=== PATIENT | male | born 1990 | race Caucasian/White ===

== ENCOUNTER 2021-03-07 14:39 | Inpatient (IN) | payer MEDICAID ==
[~2021-03-07] VITALS: Ht 165.1 cm; Wt 56.7 kg
[2021-03-07] MEDS ORDERED: HALOPERIDOL 5 MG TABLET PO PRN (16:30)
[2021-03-07] MEDS ORDERED: ZOLPIDEM TARTRATE 10 MG TABLET PO PRN (16:30)
[2021-03-07] MEDS ORDERED: LORazepam 2 MG TABLET ONE (17:14)
[2021-03-07] MEDS ORDERED: HALOPERIDOL 5 MG TABLET ONE (17:15)
[2021-03-07 17:35] VITALS: BP 116/80
[2021-03-07] MEDS ORDERED: OLAN10TA74 PO (18:57)
[2021-03-07] MEDS ORDERED: PALI1.5T7 PO (18:57)
[2021-03-07] MEDS ORDERED: LOSA50TA37 PO (18:57)
[2021-03-07] MEDS ORDERED: FLUO20CA36 PO (18:57)
[2021-03-07] MEDS ORDERED: DIVA-80 PO (18:57)
[2021-03-07] MEDS: LORazepam 2 MG TABLET PO PRN (19:07)
[2021-03-07 19:56] VITALS: BP 144/87
[2021-03-08 01:20] VITALS: BP 143/100
[2021-03-08 07:16] LABS: BASOPHILS % (AUTO) 0.5 % (0.0-2.0); EOSINOPHILS % (AUTO) 1.3 % (1.0-6.0); HEMATOCRIT 35.4 % (41-53); HEMOGLOBIN 11.3 g/dL (13.5-17.5); LYMPHOCYTES # (AUTO) 1.7 K/uL (1.0-4.8); LYMPHOCYTES % (AUTO) 30.8 % (22.0-44.0); MEAN CORPUSCULAR HEMOGLOBIN 28.1 pg (26.0-34.0); MEAN CORPUSCULAR HGB CONC 31.9 G/dL (31.0-37.0); MEAN CORPUSCULAR VOLUME 88 fL (80-100); MONOCYTES # (AUTO) 0.6 K/uL (0.1-1.0); MONOCYTES % (AUTO) 10.5 % (2.0-9.0); NEUTROPHILS # (AUTO) 3.1 K/uL (1.8-7.7); NEUTROPHILS % (AUTO) 56.9 % (40.0-70.0); PLATELET COUNT (AUTO) 201 K/uL (150-450); RED BLOOD CELL COUNT(AUTO) 4.02 MIL/uL (4.50-5.90); RED CELL DISTRIBUTION WIDTH 13.9 % (11.5-14.5)
[2021-03-08 07:40] LABS: ALBUMIN 3.9 g/dL (3.4-5.0); ANION GAP 3 mmol/L (8-16); CALCIUM, TOTAL 9.5 mg/dL (8.8-10.5); CARBON DIOXIDE 28 mmol/L (22-29); CHLORIDE 101 mmol/L (98-107); CREATININE 1.09 mg/dL (0.60-1.30); GLOMERULAR FILTR. RATE CALC > 60 mL/min (>60); GLUCOSE,RANDOM 112 mg/dL (70-110); POTASSIUM 4.1 mmol/L (3.5-5.1); SODIUM SERUM 132 mmol/L (136-145); UREA NITROGEN, BLOOD 10 mg/dL (7-18)
[2021-03-08 08:11] LABS: ALANINE AMINOTRANSFERASE 55 U/L (12-78); ALKALINE PHOSPHATASE 65 U/L (46-116); ASPARTATE AMINOTRANSFERASE 32 U/L (15-37); BILIRUBIN,TOTAL 0.4 mg/dL (0.1-1.0); CHOLESTEROL 194 mg/dL (131-200); FREE T4 (FREE THYROXINE) 0.78 ng/dL (0.76-1.46); HDL CHOLESTEROL 39 mg/dL (40-60); LDL CHOL (CALC.) 125 mg/dL (0-130); TOTAL PROTEIN, SERUM 7.6 g/dL (6.4-8.2); TRIGLYCERIDES 149 mg/dL (15-150)
[2021-03-08] MEDS: DIVALPROEX SODIUM 500 MG DR TABLET PO SCH ×2 (09:30→16:59)
[2021-03-08] MEDS: OLANZapine 5 MG TABLET PO SCH (09:30)
[2021-03-08 10:39] VITALS: BP 121/77
[2021-03-08 16:25] VITALS: BP 138/94
[2021-03-08] MEDS: OLANZapine 10 MG TABLET PO SCH (16:59)
[2021-03-09 05:02] VITALS: BP 128/72
[2021-03-09] MEDS ORDERED: LORazepam 1 MG TABLET ONE ×2 (07:59)
[2021-03-09] MEDS: DIVALPROEX SODIUM 500 MG DR TABLET PO SCH ×2 (09:00→20:45)
[2021-03-09] MEDS: OLANZapine 5 MG TABLET PO SCH (09:00)
[2021-03-09 10:05] VITALS: BP 130/72
[2021-03-09 16:10] VITALS: BP 136/88
[2021-03-09] MEDS: OLANZapine 10 MG TABLET PO SCH (20:45)
[2021-03-10 06:50] VITALS: BP 121/83
[2021-03-10 08:22] VITALS: BP 150/95
[2021-03-10] MEDS: OLANZapine 5 MG TABLET PO SCH (09:00)
[2021-03-10] MEDS: DIVALPROEX SODIUM 500 MG DR TABLET PO SCH ×2 (09:00→21:00)
[2021-03-10] MEDS ORDERED: IBUPROFEN 400 MG TABLET PO PRN (15:00)
[2021-03-10] MEDS ORDERED: ONDANSETRON HCL 4 MG TABLET PO PRN (15:00)
[2021-03-10] MEDS ORDERED: ALBUTEROL SULFATE HFA 90 MCG/PUFF 8 GM INHALER IH PRN (15:00)
[2021-03-10] MEDS ORDERED: NICOTINE 14 MG/24 HOUR PATCH TD PRN (15:00)
[2021-03-10] MEDS ORDERED: GuaiFENesin/D-METHORPHAN [SUGAR-FREE] 200-20MG/10 ML SYRUP UDCUP PO PRN (15:00)
[2021-03-10] MEDS ORDERED: PETROLATUM,WHITE 28 GM JELLY TP PRN (15:00)
[2021-03-10] MEDS ORDERED: LOPERAMIDE HCL 2 MG CAPSULE PO PRN (15:00)
[2021-03-10] MEDS ORDERED: ACETAMINOPHEN 325 MG TABLET PO PRN (15:00)
[2021-03-10] MEDS ORDERED: CloNIDine HCL 0.1 MG TABLET PO PRN (15:00)
[2021-03-10] MEDS ORDERED: MAGNESIUM HYDROXIDE SUSPENSION 30 ML UDCUP PO PRN (15:00)
[2021-03-10] MEDS ORDERED: MAG HYDROX/AL HYDROX/SIMETH ES 30 ML SUSPENSION UDCUP PO PRN (15:00)
[2021-03-10] MEDS ORDERED: DOCUSATE SODIUM 100 MG CAPSULE PO PRN (15:00)
[2021-03-10 16:15] VITALS: BP 127/80
[2021-03-10] MEDS: OLANZapine 10 MG TABLET PO SCH (21:00)
[2021-03-11 01:41] VITALS: BP 152/91
[2021-03-11 06:42] VITALS: BP 149/99
[2021-03-11 07:33] LABS: ANION GAP 9 mmol/L (8-16); CALCIUM, TOTAL 9.7 mg/dL (8.8-10.5); CARBON DIOXIDE 26 mmol/L (22-29); CHLORIDE 104 mmol/L (98-107); CREATININE 1.02 mg/dL (0.60-1.30); GLOMERULAR FILTR. RATE CALC > 60 mL/min (>60); GLUCOSE,RANDOM 97 mg/dL (70-110); POTASSIUM 3.7 mmol/L (3.5-5.1); SODIUM SERUM 139 mmol/L (136-145); UREA NITROGEN, BLOOD 9 mg/dL (7-18)
[2021-03-11] MEDS: LOSARTAN POTASSIUM 50 MG TABLET PO SCH (08:18)
[2021-03-11] MEDS: DIVALPROEX SODIUM 500 MG DR TABLET PO SCH ×4 (08:18→22:40)
[2021-03-11] MEDS: OLANZapine 5 MG TABLET PO SCH (08:19)
[2021-03-11 08:33] VITALS: BP 132/85
[2021-03-11 16:18] VITALS: BP 150/92
[2021-03-11] MEDS: OLANZapine 10 MG TABLET PO SCH ×3 (16:41→22:40)
[2021-03-11] MEDS ORDERED: HALOPERIDOL LACTATE 5 MG/ML VIAL IM PRN (16:45)
[2021-03-12 03:44] VITALS: BP 150/93
[2021-03-12 07:08] VITALS: BP 141/81
[2021-03-12] MEDS: LORazepam 2 MG TABLET PO PRN ×2 (07:17→20:26)
[2021-03-12 08:43] VITALS: BP 146/79
[2021-03-12] MEDS: OLANZapine 5 MG TABLET PO SCH (09:49)
[2021-03-12] MEDS: DIVALPROEX SODIUM 500 MG DR TABLET PO SCH ×2 (09:49→20:26)
[2021-03-12] MEDS: LOSARTAN POTASSIUM 50 MG TABLET PO SCH (09:49)
[2021-03-12 16:14] VITALS: BP 101/60
[2021-03-12] MEDS: OLANZapine 10 MG TABLET PO SCH (20:26)
[2021-03-13 04:08] VITALS: BP 211/163
[2021-03-13 05:10] VITALS: BP 116/79
[2021-03-13] MEDS: DIVALPROEX SODIUM 500 MG DR TABLET PO SCH (09:08)
[2021-03-13] MEDS: LOSARTAN POTASSIUM 50 MG TABLET PO SCH (09:08)
[2021-03-13] MEDS: OLANZapine 5 MG TABLET PO SCH (09:08)
[2021-03-13 09:33] VITALS: BP 96/57
[2021-03-13] MEDS ORDERED: DIVA-80 PO (10:56)
[2021-03-13] MEDS ORDERED: OLAN10TA74 PO (10:57)
[2021-03-13] MEDS ORDERED: OLAN5TAB52 PO (10:58)
== END 2021-03-13 13:10 | disposition home or self-care (01) | DRG 753 ==
LOC: B3A 16:40
DX: F31.9 Bipolar disorder, unspecified (principal); E87.1 Hypo-osmolality and hyponatremia; R45.851 Suicidal ideations; E03.9 Hypothyroidism, unspecified; I10 Essential (primary) hypertension; Z59.0 Homelessness; Z79.899 Other long term (current) drug therapy; Z91.5 Personal history of self-harm
CPT/HCPCS: 80048; 80053; 80061; 84439; 84443; 85025; 87081